=== PATIENT | female | born 1960 | race Caucasian/White ===

== ENCOUNTER 2016-12-24 23:04 | Emergency (ER) | payer OTHER ==
--- NOTE | 2016-12-25 00:45 | ED NURSING NOTES ---
Clinical Report - Nurses [facility] [address] [place] [address] 12/24/2016 23:06 [id number] Triage time 23:15. Acuity: LEVEL 3. Chief Complaint: (Feels like heart is skipping beats). 23:21. Alert. SEPSIS SCREEN: Sepsis Screen. Negative (no infection suspected/documented). --23:21 Lm Blood R.N. 23:15 12/24/16. BP: 149/78. HR: 69. RR: 16. O2 saturation: 96% on room air. Temp: 98.7 F (oral). Pain level now: 0/10. --23:21 Lm Blood R.N. Weight: 79.3 kg stated. Height/Length: 64 inches Per Patient. BMI: 30. --23:19 Lm Blood R.N. Medications Nortriptyline HCl Oral 25 mg. --23:17 Lm Blood R.N. Prevacid Oral, at bedtime (pt unsure of dose ). --23:17 Lm Blood R.N. Medication/allergy information source: the patient. --23:21 Lm Blood R.N. Allergies No Known Drug Allergy. --00:53 Lm Blood R.N. History Arrived by private vehicle. Historian: patient. Accompanied by spouse. Primary physician (Constanza). Onset. (3 - 4 days ago). ( Patient reports that for that last 3-4 days she has felt like her heart has been skipping beats with a occasional fluttering sensation). Treatment HOSPICE DIRECTOR: None. PAST MEDICAL HX: Immunizations: up-to-date. The patient has had a hysterectomy. SOCIAL HX: Never smoker. No alcohol use or drug use. No infectious disease exposure. ABUSE ASSESSMENT: No report of abuse. FALL RISK ASSESSMENT: Fall risk assessment completed. No fall risk identified. NUTRITIONAL RISK ASSESSMENT: The nutritional risk assessment revealed no deficiencies. FUNCTIONAL ASSESSMENT: Functional assessment: no impairments noted. LEARNING NEEDS ASSESSMENT: The learning needs assessment revealed no barriers. SKIN INTEGRITY ASSESSMENT: Skin integrity risk assessment completed. No skin integrity risk identified. --23:21 Lm Blood R.N. PROBLEMS: Depression. Anxiety Reaction. --23:18 Lm Blood R.N. ADDITIONAL SURGERIES: Cholecystectomy. . Hysterectomy. --23:19 Lm Blood R.N. Interventions ID band on patient. To treatment room. --23:21 Lm Blood R.N. PHYSICAL ASSESSMENT 23:21. Ambulatory to room. Patient gowned. GENERAL / NEURO / PSYCH: Alert. Oriented X 4. HEENT: No facial asymmetry noted. Mucous membranes are pink. RESPIRATORY: Respirations not labored. SKIN: Skin intact. Skin is warm and dry. Normal skin turgor. --23:21 Lm Blood R.N. NURSING PROGRESS NOTES 23:21. Head of bed elevated. Two patient identifiers checked. Call light placed in reach. Bed placed in lowest position. Brakes of bed on. Patient ready for evaluation- chart flagged. --23:21 Lm Blood R.N. 23:25 12/24/2016 Site #1 started via IV in the right forearm with an 20g angiocath, with aseptic technique and good blood return; one attempt. Blood drawn: rainbow set. Labeled in the presence of the patient and sent to the lab. Saline lock flushed with 10 mL saline. --23:32 Lm Blood R.N. EKG time: (2329 PM). EKG was ordered, performed by a tech and shown to the ED physician. --23:35 Criselda Clinton 23:57. Patient transported to radiology by wheelchair with tech. --23:57 Lm Blood R.N. 00:04. Patient returned from radiology by wheelchair with tech. --00:09 Lm Blood R.N. 00:49. The patient is calm and resting quietly. RESPIRATORY: No respiratory distress. SKIN: Skin is warm and dry. Skin color within normal limits. --00:52 Lm Blood R.N. DISPOSITION / DISCHARGE 00:44 12/25/2016 Site #1 removed upon discharge. Catheter intact. Bandage applied. --00:51 Lm Blood R.N. Departure time: 00:52. Condition at departure: stable. No learning barriers present. Discharge instructions provided and reviewed with the patient and spouse. Patient and spouse verbalized understanding. Written instructions provided in [place]. The patient was discharged home and accompanied by spouse. She left the Emergency Department ambulatory and via private vehicle. Spouse driving. FALL RISK ASSESSMENT: Fall risk assessment completed. No fall risk identified. --00:52 Lm Blood R.N. 00:43 12/25/16. BP: 115/68. HR: 63. RR: 16. O2 saturation: 100% on room air. Pain level now: 0/10. --00:52 Lm Blood R.N. Locked/Released at 12/25/2016 0:53 by Lm Blood R.N.
--- NOTE | 2016-12-25 00:45 | ED ORDER SUMMARY ---
..... Patient: KISHORE MERCADO OrderSheet [facility] VisitID: [id number] [place] [address] 56y, F Registration Date/Time: 12/24/2016 ORDER SHEET Weight: 79.3 kg (stated) Allergies: No Known Drug Allergy GENERAL ORDERS: Lightout Examiner (Continuous) (Irregular heart beat ) (23:31 12/24/2016 JQuivey R.N. per protocol) (23:34 Anupamekimaamadou) CBC w Diff Urgent (23:32 12/24/2016 JQuivey R.N. per protocol) (23:35 AMcQuoid ER Tech1) (Cancelled: Other23:52 Tyree ROMERO) CMP Urgent (23:32 12/24/2016 JQuivey R.N. per protocol) (23:35 AMcQuoid ER Tech1) (Cancelled: Other23:52 Tyree ROMERO) EKG - ER Stat (23:32 12/24/2016 JQuivey R.N. per protocol) (23:34 Shima) Cardiac Panel Stat (23:53 12/24/2016 Tyree ROMERO) (Ack 23:54 AMcQuoid ER Tech1) (23:54 JQuivey R.N.) TSH Urgent (23:53 12/24/2016 Tyree ROMERO) (Ack 23:54 AMcQuoid ER Tech1) (23:55 JQuivey R.N.) Chest 2V Urgent (23:53 12/24/2016 Tyree ROMERO) (Ack 23:54 AMcQuoid ER Tech1) (0:05 GUnger) - (independent freight agent needs to be turned on.) (23:53 12/24/2016 Tyree ROMERO) (23:56 JQuivey R.N.) MEDICATION ORDERS: IV FLUIDS: IV Saline Lock (23:32 12/24/2016 JQuivey R.N. per protocol) (23:32 JQuivey R.N.) ORDER SHEET NOTES: [Electronically signed by Lm Blood R.N. (00:53 12/25/2016)] [Electronically signed by Clarke Ruiz MD (23:38 12/27/2016)] [Electronically locked/signed by Lm Blood R.N. (00:53 12/25/2016)]
--- NOTE | 2016-12-25 00:45 | ED ORDER SUMMARY ---
..... Patient: KISHORE MERCADO OrderSheet [facility] VisitID: [id number] [place] [address] 56y, F Registration Date/Time: 12/24/2016 ORDER SHEET Weight: 79.3 kg (stated) Allergies: No Known Drug Allergy GENERAL ORDERS: [place] Gilder (Continuous) (Irregular heart beat ) (23:31 12/24/2016 JQuivey R.N. per protocol) (23:34 Anupamekimaamadou) CBC w Diff Urgent (23:32 12/24/2016 JQuivey R.N. per protocol) (23:35 AMcQuoid ER Tech1) (Cancelled: Other23:52 Tyree ROMERO) CMP Urgent (23:32 12/24/2016 JQuivey R.N. per protocol) (23:35 AMcQuoid ER Tech1) (Cancelled: Other23:52 Tyree ROMERO) EKG - ER Stat (23:32 12/24/2016 JQuivey R.N. per protocol) (23:34 Shima) Cardiac Panel Stat (23:53 12/24/2016 Tyree ROMERO) (Ack 23:54 AMcQuoid ER Tech1) (23:54 JQuivey R.N.) TSH Urgent (23:53 12/24/2016 Tyree ROMERO) (Ack 23:54 AMcQuoid ER Tech1) (23:55 JQuivey R.N.) Chest 2V Urgent (23:53 12/24/2016 Tyree ROMERO) (Ack 23:54 AMcQuoid ER Tech1) (0:05 GUnger) - (crm manager needs to be turned on.) (23:53 12/24/2016 Tyree ROMERO) (23:56 JQuivey R.N.) MEDICATION ORDERS: IV FLUIDS: IV Saline Lock (23:32 12/24/2016 JQuivey R.N. per protocol) (23:32 JQuivey R.N.) ORDER SHEET NOTES: [Electronically signed by Lm Blood R.N. (00:53 12/25/2016)] [Electronically signed by Clarke Ruiz MD (23:38 12/27/2016)] [Electronically locked/signed by Lm Blood R.N. (00:53 12/25/2016)]
--- NOTE | 2016-12-25 00:45 | ED CLINICAL REPORT ---
Clinical Report - Physicians/Mid Levels [facility] [address] [place] [address] 12/24/2016 23:06 [id number] Time Seen: 23:32 Mar 2016. Arrived- By private vehicle. Historian- patient. CPT: ER phys charges level 4 plus (#[id number]). EKG interpretation (#[id number]). HISTORY OF PRESENT ILLNESS Chief Complaint: PALPITATIONS and CHEST DISCOMFORT. Modifying factors. Not worsened by anything. Not relieved by anything. This started about 3 days CLINICAL ASSOC; Onset. (3 - 4 days ago). ( Patient reports that for that last 3-4 days she has felt like her heart has been skipping beats with a occasional fluttering sensation). and is still present. It is described as missing beats. No chest pain or discomfort, difficulty breathing, sweating episodes or fainting episodes. No dizziness, tingling or muscle spasms. Similar symptoms previously: None. Recent medical care: Not recently seen/assessed. REVIEW OF SYSTEMS No fever, chills, cough, orthopnea or calf pain. No sore throat, nausea, abdominal pain, black stools or difficulty with urination. No skin rash, vomiting, diarrhea or bloody stools. All systems otherwise negative, except as recorded above. PAST HISTORY The patient has had a hysterectomy. Depression. Anxiety Reaction.. ADDITIONAL SURGERIES: Cholecystectomy. . Hysterectomy. SOCIAL HISTORY Never smoker. No alcohol use or drug use. ADDITIONAL NOTES The nursing notes have been reviewed. PHYSICAL EXAM Vital Signs: 12/24/2016 23:15 BP: 149/78. HR: 69. RR: 16. O2 saturation: 96%. Temp: 98.7 F. Pain level now: 0/10. Appearance: Alert. No acute distress. Eyes: Pupils equal, round and reactive to light. Eyes normal inspection. ENT: Ears normal. Nose normal. Pharynx normal. Neck: Normal inspection. Neck supple. CVS: Normal heart rate and rhythm. Heart sounds normal. Pulses normal. No cardiac murmur. Respiratory: No respiratory distress. Breath sounds normal. Chest nontender. Abdomen: Soft and nontender. Back: Normal external inspection. Skin: Skin warm. Normal skin color. No rash. Extremities: Extremities exhibit normal ROM. No lower extremity edema. Neuro: Oriented X 3. No motor deficit. No sensory deficit. Reflexes normal. LABS, X-RAYS, AND EKG EKG: Normal sinus rhythm. Occasional unifocal wide-complex ectopic beats. Consistent with premature ventricular contractions. Normal P waves. Normal MARI. Normal QRS complex. Normal axis. Normal ST and T waves. Prior EKG unavailable. The study has been interpreted contemporaneously. The study has been independently viewed by me. The EKG appears to be a good tracing. Chest X-ray: No infiltrate, mass, cardiomegaly, vascular congestion or CHF. (Atelectasis at the bases.). Views: PA and lateral. Technique: good. The X-rays were independently viewed by me and interpreted contemporaneously by me. Laboratory Tests: CBC w Diff: (KRISTEN: 12/24/2016 23:25) ( [facility] [place] Final results Test Result Flag Units (Reference) WHITE BLOOD COUNT 6.4 K/uL (4.5-11.5) RED BLOOD COUNT 4.82 M/uL (4.00-5.20) HEMOGLOBIN 13.2 gm/dL (12.0-16.0) HEMATOCRIT 40.3 % (36.0-46.0) MEAN CELL VOLUME 84 fL (80-100) MEAN CORPUSCULAR HGB 28 pg (26-34) MEAN CORPUSCULAR HGB CONC 33 g/dL (31-37) RED CELL DISTRIBUTION WIDTH 14.8 % (11.6-14.8) PLATELET COUNT 250 K/uL (150-400) LYMPH % 35.1 % (25-40) MONO % 5.2 % (3-14) GRANULOCYTE % 59.7 (53-90) CBC w Diff: (KRISTEN: 12/24/2016 23:30) ( MsgRcvd 12/24/2016 23:40) Final results Test Result Flag Units (Reference) WHITE BLOOD COUNT 6.4 K/uL (4.5-11.5) RED BLOOD COUNT 4.82 M/uL (4.00-5.20) HEMOGLOBIN 13.2 gm/dL (12.0-16.0) HEMATOCRIT 40.3 % (36.0-46.0) MEAN CELL VOLUME 84 fL (80-100) MEAN CORPUSCULAR HGB 28 pg (26-34) MEAN CORPUSCULAR HGB CONC 33 g/dL (31-37) RED CELL DISTRIBUTION WIDTH 14.8 % (11.6-14.8) PLATELET COUNT 250 K/uL (150-400) LYMPH % 35.1 % (25-40) MONO % 5.2 % (3-14) GRANULOCYTE % 59.7 (53-90) CHEM 13 PANEL: (KRISTEN: 12/24/2016 23:25) ( MsgRcvd 12/25/2016 00:14) Final results Test Result Flag Units (Reference) GLUCOSE 102 mg/dL (70-110) BUN 24 H mg/dL (7-18) CREATININE 1.0 mg/dL (0.6-1.3) Estimated GFR >60 mL/min Estimated GFR- >60 mL/min Note: Persistent reduction over 3 months in eGFR<60 mL/min/1.73 m2 defines CKD. Patients with eGFR values>=60 mL/min/1.73 m2 may also have CKD if evidence ofpersistent proteinuria. Additional information may be foundat www.kidney.org. SODIUM 139 mmol/L (136-145) POTASSIUM 3.8 mmol/L (3.5-5.1) CHLORIDE 104 mmol/L (98-107) CARBON DIOXIDE 25 mmol/L (21-32) CALCIUM 8.7 mg/dL (8.5-10.1) TOTAL PROTEIN 7.0 g/dL (6.4-8.2) ALBUMIN 3.6 g/dL (3.3-5.0) BILIRUBIN, TOTAL 0.3 mg/dL (0.0-1.0) ALKALINE PHOSPHATASE 67 U/L (46-116) AST (SGOT) 19 U/L (15-37) ALT (SGPT) 30 U/L (12-78) MAGNESIUM 2.1 mg/dL (1.8-2.4) CPK 122 U/L (24-260) TROPONIN I <0.05 ng/mL (0.00-1.5) TROPONIN REFERENCE RANGE:<0.1 NEGATIVE0.1-1.5 INDETERMINANT>1.5 POSITIVE CMP: (KRISTEN: 12/24/2016 23:30) ( MsgRcvd 12/24/2016 23:55) Final results Test Result Flag Units (Reference) GLUCOSE 102 mg/dL (70-110) BUN 24 H mg/dL (7-18) CREATININE 1.0 mg/dL (0.6-1.3) Estimated GFR >60 mL/min Estimated GFR- >60 mL/min Note: Persistent reduction over 3 months in eGFR<60 mL/min/1.73 m2 defines CKD. Patients with eGFR values>=60 mL/min/1.73 m2 may also have CKD if evidence ofpersistent proteinuria. Additional information may be foundat www.kidney.org. SODIUM 140 mmol/L (136-145) POTASSIUM 3.9 mmol/L (3.5-5.1) CHLORIDE 104 mmol/L (98-107) CARBON DIOXIDE 26 mmol/L (21-32) CALCIUM 8.7 mg/dL (8.5-10.1) TOTAL PROTEIN 7.0 g/dL (6.4-8.2) ALBUMIN 3.7 g/dL (3.3-5.0) BILIRUBIN, TOTAL 0.3 mg/dL (0.0-1.0) ALKALINE PHOSPHATASE 67 U/L (46-116) AST (SGOT) 20 U/L (15-37) ALT (SGPT) 28 U/L (12-78) . PROGRESS AND PROCEDURES Course of Care: Pt with benign PVC's. Patient/family counseled. Disposition: Discharged. Condition: stable. CLINICAL IMPRESSION Occasional PVC's. Mild dehydration Mild hypothyroid. INSTRUCTIONS Avoid stimulants (such as cigarettes, coffee, cold medicines, sinus medicines, street drugs) until better. (Avoid caffeine). Warnings: Further evaluation is necessary. GENERAL WARNINGS: Return or contact your physician immediately if your condition worsens or changes unexpectedly, if not improving as expected, or if other problems arise. Your Current Medications: CONTINUE TAKING THE FOLLOWING MEDICATIONS: Nortriptyline HCl Oral : 25 mg. Prevacid Oral : at bedtime, pt unsure of dose. Follow-up: Follow up with your doctor in one week. Call for an appointment. Understanding of the discharge instructions verbalized by patient. (Electronically signed by Clarke Ruiz MD 12/27/2016 23:38)
--- NOTE | 2016-12-25 00:45 | ED NURSING NOTES ---
Clinical Report - Nurses [facility] [address] [place] [address] 12/24/2016 23:06 [id number] Triage time 23:15. Acuity: LEVEL 3. Chief Complaint: (Feels like heart is skipping beats). 23:21. Alert. SEPSIS SCREEN: Sepsis Screen. Negative (no infection suspected/documented). --23:21 Lm Blood R.N. 23:15 12/24/16. BP: 149/78. HR: 69. RR: 16. O2 saturation: 96% on room air. Temp: 98.7 F (oral). Pain level now: 0/10. --23:21 Lm Blood R.N. Weight: 79.3 kg stated. Height/Length: 64 inches Per Patient. BMI: 30. --23:19 Lm Blood R.N. Medications Nortriptyline HCl Oral 25 mg. --23:17 Lm Blood R.N. Prevacid Oral, at bedtime (pt unsure of dose ). --23:17 Lm Blood R.N. Medication/allergy information source: the patient. --23:21 Lm Blood R.N. Allergies No Known Drug Allergy. --00:53 Lm Blood R.N. History Arrived by private vehicle. Historian: patient. Accompanied by spouse. Primary physician (Constanza). Onset. (3 - 4 days ago). ( Patient reports that for that last 3-4 days she has felt like her heart has been skipping beats with a occasional fluttering sensation). Treatment [employer] SCHOOL DEAN: None. PAST MEDICAL HX: Immunizations: up-to-date. The patient has had a hysterectomy. SOCIAL HX: Never smoker. No alcohol use or drug use. No infectious disease exposure. ABUSE ASSESSMENT: No report of abuse. FALL RISK ASSESSMENT: Fall risk assessment completed. No fall risk identified. NUTRITIONAL RISK ASSESSMENT: The nutritional risk assessment revealed no deficiencies. FUNCTIONAL ASSESSMENT: Functional assessment: no impairments noted. LEARNING NEEDS ASSESSMENT: The learning needs assessment revealed no barriers. SKIN INTEGRITY ASSESSMENT: Skin integrity risk assessment completed. No skin integrity risk identified. --23:21 Lm Blood R.N. PROBLEMS: Depression. Anxiety Reaction. --23:18 Lm Blood R.N. ADDITIONAL SURGERIES: Cholecystectomy. . Hysterectomy. --23:19 Lm Blood R.N. Interventions ID band on patient. To treatment room. --23:21 Lm Blood R.N. PHYSICAL ASSESSMENT 23:21. Ambulatory to room. Patient gowned. GENERAL / NEURO / PSYCH: Alert. Oriented X 4. HEENT: No facial asymmetry noted. Mucous membranes are pink. RESPIRATORY: Respirations not labored. SKIN: Skin intact. Skin is warm and dry. Normal skin turgor. --23:21 Lm Blood R.N. NURSING PROGRESS NOTES 23:21. Head of bed elevated. Two patient identifiers checked. Call light placed in reach. Bed placed in lowest position. Brakes of bed on. Patient ready for evaluation- chart flagged. --23:21 Lm Blood R.N. 23:25 12/24/2016 Site #1 started via IV in the right forearm with an 20g angiocath, with aseptic technique and good blood return; one attempt. Blood drawn: rainbow set. Labeled in the presence of the patient and sent to the lab. Saline lock flushed with 10 mL saline. --23:32 Lm Blood R.N. EKG time: (2329 PM). EKG was ordered, performed by a tech and shown to the ED physician. --23:35 Criselda Clinton 23:57. Patient transported to radiology by wheelchair with tech. --23:57 Lm Blood R.N. 00:04. Patient returned from radiology by wheelchair with tech. --00:09 Lm Blood R.N. 00:49. The patient is calm and resting quietly. RESPIRATORY: No respiratory distress. SKIN: Skin is warm and dry. Skin color within normal limits. --00:52 Lm Blood R.N. DISPOSITION / DISCHARGE 00:44 12/25/2016 Site #1 removed upon discharge. Catheter intact. Bandage applied. --00:51 Lm Blood R.N. Departure time: 00:52. Condition at departure: stable. No learning barriers present. Discharge instructions provided and reviewed with the patient and spouse. Patient and spouse verbalized understanding. Written instructions provided in [place]ian. The patient was discharged home and accompanied by spouse. She left the Emergency Department ambulatory and via private vehicle. Spouse driving. FALL RISK ASSESSMENT: Fall risk assessment completed. No fall risk identified. --00:52 Lm Blood R.N. 00:43 12/25/16. BP: 115/68. HR: 63. RR: 16. O2 saturation: 100% on room air. Pain level now: 0/10. --00:52 Lm Blood R.N. Locked/Released at 12/25/2016 0:53 by Lm Blood R.N.
--- NOTE | 2016-12-25 00:45 | ED CLINICAL REPORT ---
Clinical Report - Physicians/Mid Levels [facility] [address] [place] [address] 12/24/2016 23:06 [id number] Time Seen: 23:32 Mar 2016. Arrived- By private vehicle. Historian- patient. CPT: ER phys charges level 4 plus (#[id number]). EKG interpretation (#[id number]). HISTORY OF PRESENT ILLNESS Chief Complaint: PALPITATIONS and CHEST DISCOMFORT. Modifying factors. Not worsened by anything. Not relieved by anything. This started about 3 days [employer]; Onset. (3 - 4 days ago). ( Patient reports that for that last 3-4 days she has felt like her heart has been skipping beats with a occasional fluttering sensation). and is still present. It is described as missing beats. No chest pain or discomfort, difficulty breathing, sweating episodes or fainting episodes. No dizziness, tingling or muscle spasms. Similar symptoms previously: None. Recent medical care: Not recently seen/assessed. REVIEW OF SYSTEMS No fever, chills, cough, orthopnea or calf pain. No sore throat, nausea, abdominal pain, black stools or difficulty with urination. No skin rash, vomiting, diarrhea or bloody stools. All systems otherwise negative, except as recorded above. PAST HISTORY The patient has had a hysterectomy. Depression. Anxiety Reaction.. ADDITIONAL SURGERIES: Cholecystectomy. . Hysterectomy. SOCIAL HISTORY Never smoker. No alcohol use or drug use. ADDITIONAL NOTES The nursing notes have been reviewed. PHYSICAL EXAM Vital Signs: 12/24/2016 23:15 BP: 149/78. HR: 69. RR: 16. O2 saturation: 96%. Temp: 98.7 F. Pain level now: 0/10. Appearance: Alert. No acute distress. Eyes: Pupils equal, round and reactive to light. Eyes normal inspection. ENT: Ears normal. Nose normal. Pharynx normal. Neck: Normal inspection. Neck supple. CVS: Normal heart rate and rhythm. Heart sounds normal. Pulses normal. No cardiac murmur. Respiratory: No respiratory distress. Breath sounds normal. Chest nontender. Abdomen: Soft and nontender. Back: Normal external inspection. Skin: Skin warm. Normal skin color. No rash. Extremities: Extremities exhibit normal ROM. No lower extremity edema. Neuro: Oriented X 3. No motor deficit. No sensory deficit. Reflexes normal. LABS, X-RAYS, AND EKG EKG: Normal sinus rhythm. Occasional unifocal wide-complex ectopic beats. Consistent with premature ventricular contractions. Normal P waves. Normal MARI. Normal QRS complex. Normal axis. Normal ST and T waves. Prior EKG unavailable. The study has been interpreted contemporaneously. The study has been independently viewed by me. The EKG appears to be a good tracing. Chest X-ray: No infiltrate, mass, cardiomegaly, vascular congestion or CHF. (Atelectasis at the bases.). Views: PA and lateral. Technique: good. The X-rays were independently viewed by me and interpreted contemporaneously by me. Laboratory Tests: CBC w Diff: (KRISTEN: 12/24/2016 23:25) ( [facility] 12/25/2016 00:01) Final results Test Result Flag Units (Reference) WHITE BLOOD COUNT 6.4 K/uL (4.5-11.5) RED BLOOD COUNT 4.82 M/uL (4.00-5.20) HEMOGLOBIN 13.2 gm/dL (12.0-16.0) HEMATOCRIT 40.3 % (36.0-46.0) MEAN CELL VOLUME 84 fL (80-100) MEAN CORPUSCULAR HGB 28 pg (26-34) MEAN CORPUSCULAR HGB CONC 33 g/dL (31-37) RED CELL DISTRIBUTION WIDTH 14.8 % (11.6-14.8) PLATELET COUNT 250 K/uL (150-400) LYMPH % 35.1 % (25-40) MONO % 5.2 % (3-14) GRANULOCYTE % 59.7 (53-90) CBC w Diff: (KRISTEN: 12/24/2016 23:30) ( MsgRcvd 12/24/2016 23:40) Final results Test Result Flag Units (Reference) WHITE BLOOD COUNT 6.4 K/uL (4.5-11.5) RED BLOOD COUNT 4.82 M/uL (4.00-5.20) HEMOGLOBIN 13.2 gm/dL (12.0-16.0) HEMATOCRIT 40.3 % (36.0-46.0) MEAN CELL VOLUME 84 fL (80-100) MEAN CORPUSCULAR HGB 28 pg (26-34) MEAN CORPUSCULAR HGB CONC 33 g/dL (31-37) RED CELL DISTRIBUTION WIDTH 14.8 % (11.6-14.8) PLATELET COUNT 250 K/uL (150-400) LYMPH % 35.1 % (25-40) MONO % 5.2 % (3-14) GRANULOCYTE % 59.7 (53-90) CHEM 13 PANEL: (KRISTEN: 12/24/2016 23:25) ( MsgRcvd 12/25/2016 00:14) Final results Test Result Flag Units (Reference) GLUCOSE 102 mg/dL (70-110) BUN 24 H mg/dL (7-18) CREATININE 1.0 mg/dL (0.6-1.3) Estimated GFR >60 mL/min Estimated GFR- >60 mL/min Note: Persistent reduction over 3 months in eGFR<60 mL/min/1.73 m2 defines CKD. Patients with eGFR values>=60 mL/min/1.73 m2 may also have CKD if evidence ofpersistent proteinuria. Additional information may be foundat www.[email or web address].org. SODIUM 139 mmol/L (136-145) POTASSIUM 3.8 mmol/L (3.5-5.1) CHLORIDE 104 mmol/L (98-107) CARBON DIOXIDE 25 mmol/L (21-32) CALCIUM 8.7 mg/dL (8.5-10.1) TOTAL PROTEIN 7.0 g/dL (6.4-8.2) ALBUMIN 3.6 g/dL (3.3-5.0) BILIRUBIN, TOTAL 0.3 mg/dL (0.0-1.0) ALKALINE PHOSPHATASE 67 U/L (46-116) AST (SGOT) 19 U/L (15-37) ALT (SGPT) 30 U/L (12-78) MAGNESIUM 2.1 mg/dL (1.8-2.4) CPK 122 U/L (24-260) TROPONIN I <0.05 ng/mL (0.00-1.5) TROPONIN REFERENCE RANGE:<0.1 NEGATIVE0.1-1.5 INDETERMINANT>1.5 POSITIVE CMP: (KRISTEN: 12/24/2016 23:30) ( MsgRcvd 12/24/2016 23:55) Final results Test Result Flag Units (Reference) GLUCOSE 102 mg/dL (70-110) BUN 24 H mg/dL (7-18) CREATININE 1.0 mg/dL (0.6-1.3) Estimated GFR >60 mL/min Estimated GFR- >60 mL/min Note: Persistent reduction over 3 months in eGFR<60 mL/min/1.73 m2 defines CKD. Patients with eGFR values>=60 mL/min/1.73 m2 may also have CKD if evidence ofpersistent proteinuria. Additional information may be foundat www.[email or web address]. SODIUM 140 mmol/L (136-145) POTASSIUM 3.9 mmol/L (3.5-5.1) CHLORIDE 104 mmol/L (98-107) CARBON DIOXIDE 26 mmol/L (21-32) CALCIUM 8.7 mg/dL (8.5-10.1) TOTAL PROTEIN 7.0 g/dL (6.4-8.2) ALBUMIN 3.7 g/dL (3.3-5.0) BILIRUBIN, TOTAL 0.3 mg/dL (0.0-1.0) ALKALINE PHOSPHATASE 67 U/L (46-116) AST (SGOT) 20 U/L (15-37) ALT (SGPT) 28 U/L (12-78) . PROGRESS AND PROCEDURES Course of Care: Pt with benign PVC's. Patient/family counseled. Disposition: Discharged. Condition: stable. CLINICAL IMPRESSION Occasional PVC's. Mild dehydration Mild hypothyroid. INSTRUCTIONS Avoid stimulants (such as cigarettes, coffee, cold medicines, sinus medicines, street drugs) until better. (Avoid caffeine). Warnings: Further evaluation is necessary. GENERAL WARNINGS: Return or contact your physician immediately if your condition worsens or changes unexpectedly, if not improving as expected, or if other problems arise. Your Current Medications: CONTINUE TAKING THE FOLLOWING MEDICATIONS: Nortriptyline HCl Oral : 25 mg. Prevacid Oral : at bedtime, pt unsure of dose. Follow-up: Follow up with your doctor in one week. Call for an appointment. Understanding of the discharge instructions verbalized by patient. (Electronically signed by Clarke Ruiz MD 12/27/2016 23:38)
--- NOTE | 2016-12-25 06:07 | DIAGNOSTIC IMAGING REPORT ---
PROCEDURE: XR CHEST 2 VIEW INDICATION: PALPITATIONS TECHNIQUE: Two views. COMPARISON: None. FINDINGS: The cardiomediastinal contour and central vasculature are within normal limits. Minor parenchymal irregularity in the retrocardiac region and along the left lateral lung base. No pleural effusion, or pneumothorax. The visualized osseous structures are intact. Surgical clips in the gallbladder fossa. IMPRESSION: 1. Minor left lower lobe atelectatic changes, scarring versus early infiltrate. Correlate clinically.
--- NOTE | 2016-12-27 23:38 | ED DISCHARGE INSTRUCTIONS ---
Patient: KISHORE MERCADO General Instructions [facility] VisitID: [id number] [address] [place] [address] 56y, F Registration Date/Time: 12/24/2016 Occasional PVC's. Mild dehydration Mild hypothyroid. INSTRUCTIONS Avoid stimulants (such as cigarettes, coffee, cold medicines, sinus medicines, street drugs) until better. (Avoid caffeine). Warnings: Further evaluation is necessary. GENERAL WARNINGS: Return or contact your physician immediately if your condition worsens or changes unexpectedly, if not improving as expected, or if other problems arise. Your Current Medications: CONTINUE TAKING THE FOLLOWING MEDICATIONS: Nortriptyline HCl Oral : 25 mg. Prevacid Oral : at bedtime, pt unsure of dose. Follow-up: Follow up with your doctor in one week. Call for an appointment. Understanding of the discharge instructions verbalized by patient. ADDITIONAL INFORMATION Heart Palpitations Palpitations refers to the feeling that your heart is beating hard, fast or irregular. Some people describe it as "pounding" or "skipped beats". Palpitations may occur in persons with heart disease, but can also occur in healthy persons. Heart-Related Causes: Arrhythmia (a change from the heart's normal rhythm) Disease of the heart valves Keg-Lsdkn-Dezyeue Causes: Certain medicines (such as asthma inhalers and decongestants) Some herbal supplements, energy drinks and pills, and weight loss pills Illegal stimulant drugs (such as cocaine, crank, methamphetamine, PCP) Caffeine, alcohol and tobacco Medical conditions such as thyroid disease, anemia, anxiety and panic disorder Sometimes the cause cannot be found. Home Care: Avoid excess caffeine, alcohol, tobacco and any stimulant drugs. Tell your doctor about any prescription or xjsn-ruu-uphrdgr or herbal medicines you take. Follow Up with your doctor or as advised by our staff. Get Prompt Medical Attention if any of the following occur together with palpitations: Weakness, dizziness, light-headed or fainting Chest pain or shortness of breath Rapid heart rate (over 120 beats per minute, at rest) Palpitations that lasts over 20 minutes Weakness of an arm or leg or one side of the face Difficulty with speech or vision You have been given the following additional information: Palpitations (Electronically signed by Clarke Ruiz MD 12/27/2016 23:38)
--- NOTE | 2016-12-27 23:38 | ED MAR SUMMARY ---
..... Medication Administration Record [facility] [address] [place], [place] [id number] Patient: KISHORE MERCADO Visit ID: [id number] 56y, F Weight: 79.3 kg Height/Length: 64 in BMI: 30 ALLERGIES: No Known Drug Allergy
--- NOTE | 2016-12-27 23:38 | ED DISCHARGE INSTRUCTIONS ---
Patient: KISHORE MERCADO General Instructions VisitID: [id number] [address] [place] [address] 56y, F Registration Date/Time: 12/24/2016 Occasional PVC's. Mild dehydration Mild hypothyroid. INSTRUCTIONS Avoid stimulants (such as cigarettes, coffee, cold medicines, sinus medicines, street drugs) until better. (Avoid caffeine). Warnings: Further evaluation is necessary. GENERAL WARNINGS: Return or contact your physician immediately if your condition worsens or changes unexpectedly, if not improving as expected, or if other problems arise. Your Current Medications: CONTINUE TAKING THE FOLLOWING MEDICATIONS: Nortriptyline HCl Oral : 25 mg. Prevacid Oral : at bedtime, pt unsure of dose. Follow-up: Follow up with your doctor in one week. Call for an appointment. Understanding of the discharge instructions verbalized by patient. ADDITIONAL INFORMATION Heart Palpitations Palpitations refers to the feeling that your heart is beating hard, fast or irregular. Some people describe it as "pounding" or "skipped beats". Palpitations may occur in persons with heart disease, but can also occur in healthy persons. Heart-Related Causes: Arrhythmia (a change from the heart's normal rhythm) Disease of the heart valves Ett-Mcxqt-Bvycgxo Causes: Certain medicines (such as asthma inhalers and decongestants) Some herbal supplements, energy drinks and pills, and weight loss pills Illegal stimulant drugs (such as cocaine, crank, methamphetamine, PCP) Caffeine, alcohol and tobacco Medical conditions such as thyroid disease, anemia, anxiety and panic disorder Sometimes the cause cannot be found. Home Care: Avoid excess caffeine, alcohol, tobacco and any stimulant drugs. Tell your doctor about any prescription or tkxw-cmf-zmdiwvf or herbal medicines you take. Follow Up with your doctor or as advised by our staff. Get Prompt Medical Attention if any of the following occur together with palpitations: Weakness, dizziness, light-headed or fainting Chest pain or shortness of breath Rapid heart rate (over 120 beats per minute, at rest) Palpitations that lasts over 20 minutes Weakness of an arm or leg or one side of the face Difficulty with speech or vision You have been given the following additional information: Palpitations (Electronically signed by Clarke Ruiz MD 12/27/2016 23:38)
--- NOTE | 2016-12-27 23:38 | ED MAR SUMMARY ---
..... Medication Administration Record [facility] [address] [place], [place] [id number] Patient: KISHORE MERCADO Visit ID: [id number] 56y, F Weight: 79.3 kg Height/Length: 64 in BMI: 30 ALLERGIES: No Known Drug Allergy
--- NOTE | 2016-12-27 23:38 | ED MED RECONCILIATION SUMMARY ---
Patient: KISHORE MERCADO Medication Reconciliation Report [facility] VisitID: [id number] [address] [place] [place] [address] 56y, F Registration Date/Time: 12/24/2016 Weight: 79.3 kg Height/Length: 64 in. BMI: 30.0 ALLERGIES: No Known Drug Allergy The patient's Home Medications are listed below: CONTINUE TAKING THE FOLLOWING MEDICATIONS: Nortriptyline HCl Oral 25 mg Prevacid Oral, at bedtime, pt unsure of dose The source(s) of the original Home Medication information: patient The following Medications were given to the patient in the Emergency Department: None. The following Medications were prescribed to the patient: None.
--- NOTE | 2016-12-27 23:38 | ED MED RECONCILIATION SUMMARY ---
Patient: KISHORE MERCADO Medication Reconciliation Report [facility] VisitID: [id number] [address] [place] [place] [address] 56y, F Registration Date/Time: 12/24/2016 Weight: 79.3 kg Height/Length: 64 in. BMI: 30.0 ALLERGIES: No Known Drug Allergy The patient's Home Medications are listed below: CONTINUE TAKING THE FOLLOWING MEDICATIONS: Nortriptyline HCl Oral 25 mg Prevacid Oral, at bedtime, pt unsure of dose The source(s) of the original Home Medication information: patient The following Medications were given to the patient in the Emergency Department: None. The following Medications were prescribed to the patient: None.
== END 2016-12-25 00:49 | disposition home or self-care (01) ==
LOC: ED SRH 23:04
DX: I49.3 Ventricular premature depolarization (principal); E86.0 Dehydration; E03.9 Hypothyroidism, unspecified
CPT/HCPCS: 90100; 90616; 92610; 92720; 93140; 95059